=== PATIENT | female | born 1985 | race Caucasian/White ===

== ENCOUNTER 2024-11-07 09:38 | Emergency (ER) | payer MEDICAID ==
[~2024-11-07] VITALS: Ht 162.6 cm; Wt 71.7 kg
[~2024-11-07 09:38] MED LIST: CLIN-214 PO; ORPH100T4 PO; POLY119P2 PO; PROC-8 PO; SULF5DRO LEFTEYE; ZOF4T PO
--- NOTE | 2024-11-07 10:15 | Physician Documentation ---
History of Present Illness ~ Chief Complaint: Back Pain Stated Complaint: LOWER BACK PAIN Time Seen by MD: 09:55 Primary Medical Doctor: Apryl Chatman Source: patient Mode of Arrival: Ambulatory Exam Limitations: no limitations HPI Chief Complaint: Right low back and flank pain Caveat: None Independent Historians: None History of Present Illness: Patient is a 39-year-old woman who comes in complaining of right lower back and flank pain that began three days ago. Pain came on suddenly when she turned or said three days ago. However she denies any trauma. Pain is sharp and severe and constant. Pain has gotten progressively worse. Patient denies any nausea vomiting diarrhea. Patient states that she does have right lower flank pain and pain that radiates into the right lower quadrant when she urinates. Patient denies any dysuria urgency or frequency though. No fever. No other abdominal pain other than when she urinates. Review of systems: All systems were reviewed and are negative except for what is indicated in the history of present illness. Past Medical History: None Past Surgical History: x2 Social History: Tobacco use, no alcohol use, denies drug use Medications: Reviewed as documented Nursing Notes Allergies: Reviewed as documented in Nursing Notes Medication Reconciliation Allergies: Coded Allergies: acetaminophen (Unverified Allergy, Mild, 11/07/24) HIVES hydrocodone (Unverified Allergy, Mild, 11/07/24) HIVES Penicillins (Unverified Allergy, Unknown, CAN'T BREATH, THROAT SWELLING, 11/07/24) codeine (Verified Allergy, Unknown, ITCHING, 11/07/24) clindamycin (Unverified Adverse Reaction, Mild, intensified infection?, 11/07/24) morphine (Unverified Adverse Reaction, Mild, cant remember getting morphine, 11/07/24) Scheduled Clindamycin HCl (Clindamycin HCl CAPSULE), 1 CAP PO TID Polyethylene Glycol 3350 (Miralax), 17 GM PO DAILY Sulfacetamide Sodium (Bleph-10), 2 DROP LEFTEYE Q4H Scheduled PRN Ondansetron ODT* (Zofran ODT*), 1 TAB PO Q6H PRN for nausea/vomiting Orphenadrine Citrate (Norflex), 1 TABLET PO BID PRN for muscle spasms Prochlorperazine Maleate (Compazine), 1 TAB PO Q8H PRN for HEADACHE, NAUSEA Past Medical History Past Medical History: Headache, MRSA Abscess Past Surgical History: , tubal ligation, other Other Past Surgical History: Ovary removed Alcohol Use: None Drug Use: none Lives with: Family Lives In: Home Occupation: unemployed Review of Systems All Other Systems at this time: Reviewed and Negative ROS Patient denies any other acute symptoms other than above. All other systems are negative Physical Exam Physical Exam Vital Signs: RN Vital Signs have been reviewed: Yes, Temperature: 97.4, Source: Temporal, Heart Rate: 73, Respiratory Rate: 20, BP: 102/80, Pulse Oximetry: 97, Weight: 71.650 Pulse Oximetry Reflects: adequate oxygenation Physical Exam General Appearance: Moderate distress HEENT: Normal OP, moist oral mucosa, PERRL, EOMI Neck: supple, normal ROM, trachea midline Pulmonary: No respiratory distress, CTA, BS equal Cardiac: RRR, no murmur, rub or gallop, GI: nondistended, soft, right lower quadrant tenderness, right mid flank tenderness but no CVA tenderness, normal bowel sounds, no guarding, no rebound Extremities: normal ROM, no swelling, non-tender Skin: intact, dry, warm, no rashes Neuro: AAOx3, speech is clear, no focal motor weakness Psych: normal affect, good eye contact, no apparent hallucination, normal speech Progress Results/Orders Results/Orders Orders - MAKENZIE ALVAREZ MD Ct Abdomen Pelvis (11/07/24 10:04) Nothing By Mouth (11/07/24 Dinner) Completed Orders - MAKENZIE ALVAREZ MD Cbc/Diff (11/07/24 10:04) Lipase (11/07/24 10:04) Hcg, Ur Ql (11/07/24 10:04) Ct Abdomen Pelvis (11/07/24 10:04) BMP (11/07/24 10:04) Oxycodone/Acetaminophen Tablet (Percocet (11/07/24 10:05) Ketorolac Trometh 15mg/Ml Vial (Toradol (11/07/24 10:05) Ua W/Microscopic, Cult If Ind (11/07/24 10:10) Medications Received in ER Medications (Trade) Dose Ordered Sig/Erika Route PRN Reason Start Time Stop Time Status Last Admin Dose Admin (Percocet 10-325 mg tab) 1 tab ONCE ONCE PO 11/07/24 10:05 11/07/24 10:06 DC 11/07/24 10:32 1 TAB (Toradol injection) 15 mg ONCE ONCE IM 11/07/24 10:05 11/07/24 10:06 DC 11/07/24 10:33 15 MG Vital Signs 11/07/24 11/07/24 11/07/24 11/07/24 09:46 10:32 10:33 11:39 Temp 97.4 Pulse 73 Resp 20 16 16 16 B/P (MAP) 102/80 Pulse Ox 97 11/07/24 11:39 Resp 16 Laboratory Tests Test 11/07/24 10:10 11/07/24 10:22 Urine Specimen Description Cln catch midstream Urine Color Straw Urine Clarity Slightly cloudy Urine pH 6.0 Urine Specific [place] <=1.005 Urine Protein Negative Urine Glucose (UA) Negative Urine Ketones Negative Urine Occult Blood Moderate H Urine Nitrite Negative Urine Bilirubin Negative Urine Urobilinogen 0.2 Urine Leukocyte Esterase Negative Urine RBC 3-10 Urine WBC None seen Urine Squamous Epithelial Cells None seen Urine Bacteria Few Urine Mucus Few Urine Culture Indicated Not ind Volume Urine Centrifuged 10 ml Urine HCG, Qualitative Negative Urine Comment White Blood Count 4.6 Red Blood Count 4.49 Hemoglobin 14.0 Hematocrit 41.2 Mean Corpuscular Volume 91.7 Mean Corpuscular Hemoglobin 31.3 H Mean Corpuscular Hemoglobin Concent 34.1 Red Cell Distribution Width 13.6 Platelet Count 235 Mean Platelet Volume 8.1 Neutrophils (%) (Auto) 52.3 Lymphocytes (%) (Auto) 35.8 Monocytes (%) (Auto) 9.5 Eosinophils (%) (Auto) 1.6 Basophils (%) (Auto) 0.8 Neutrophils # (Auto) 2.4 Lymphocytes # (Auto) 1.7 Monocytes # (Auto) 0.4 Eosinophils # (Auto) 0.1 Basophils # (Auto) 0.0 CBC Comment Sodium Level 138 Potassium Level 4.3 Chloride Level 105 Carbon Dioxide Level 28.9 Anion Gap 4 L Blood Urea Nitrogen 12 Creatinine 0.82 Estimated GFR/1.73 m2 77 BUN/Creatinine Ratio 14.6 Glucose Level 91 Calcium Level 9.0 Albumin 3.9 Lipase 44 Chemistry Comments Medical Decision Making Findings Differential diagnosis includes but is not limited to: Ureteral colic, renal colic, pyelonephritis, acute appendicitis, cholecystitis, mesenteric adenitis, urinary tract infection Abdomen and pelvis CT scan without IV contrast, indication: Right lower quadrant pain and right flank pain Impression: 1. No acute abdominal or pelvic findings. No hydronephrosis or nephrolithiasis. Normal-appearing appendix identified. Hypodensity in the liver is nonspecific. This can be further evaluated with MRI of the abdomen with contrast. Left adrenal nodule. Laboratory data independent interpretation: CBC: Unremarkable BMP: Unremarkable Urinalysis: Unremarkable, RBC 3-10, WBC none test: Negative Emergency department course/medical decision-making: Patient presents low back pain/flank pain. Unable to differentiate if this is a possible ureteral colic versus musculoskeletal pain. Patient does have significant McBurney point tenderness on exam. CT scan of the abdomen and pelvis is performed in his negative for appendicitis or your ureteral stones. Patient was given Percocet and Toradol for pain. Patient feeling little better. She will be prescribed small dose of Percocet and Norflex for muscle relaxant. Test results and all the above reviewed with the patient. Patient is stable for discharge. Departure Time of Disposition: 11:54 Disposition: 01 HOME / SELF CARE / HOMELESS Impression: Primary Impression: Acute low back pain Qualified Codes: M54.50 - Low back pain, unspecified Condition: Improved Discharge Instructions: Lumbosacral Strain, Acute Back Pain, Adult Additional Instructions: FOLLOW UP WITH YOUR PRIMARY CARE DOCTOR. NO DRIVING WHEN TAKING THE PAIN MEDICATION AND MUSCLE RELAXANTS THEY MAY CAUSE DROWSINESS. YOU MAY CONTINUE TO TAKE ADVIL OR MOTRIN WITH THE PAIN MEDICATION. HOWEVER MAKE SURE YOU TAKE IT WITH FOOD. Prescriptions Orphenadrine Citrate (Norflex) 100 Mg Tablet.sa 1 TAB PO Q12H, #20 TAB 0 Refills Prov: MAKENZIE ALVAREZ MD 11/07/24 Oxycodone HCl/Acetaminophen (Percocet 5-325 mg Tablet) 5 Mg-325 Mg Tablet 1 TAB PO TID PRN PRN for pain for 5 Days, #15 TAB 0 Refills Prov: MAKENZIE ALVAREZ MD 11/07/24 Education Educated: Patient Educated regarding: diagnosis, treatment, need for follow up Signature Scribe Signature: No scribe Attestation: No scribe MAKENZIE ALVAREZ MD Nov 07, 2024 10:15
[2024-11-07 10:29] LABS: LEUKOCYTE ESTERASE ,URINE NEGATIVE (Neg); NITRITES, URINE NEGATIVE (Neg); OCCULT BLOOD,URINE MODERATE (Neg)
[2024-11-07] MEDS: ketorolac trometh 15mg/ml vial 15 MG/ML ML IM ONE (10:33)
[2024-11-07 10:34] LABS: MEAN PLATELET VOLUME 8.1 FL (7.4-10.4); RED CELL DISTRIBUTION WIDTH 13.6 % (11.5-14.5)
[2024-11-07 10:37] LABS: URINE HCG NEGATIVE (NEG)
[2024-11-07 10:43] LABS: CREATININE 0.82 MG/DL (0.40-0.90); TOTAL CARBON DIOXIDE 28.9 MMOL/L (24-32); eCRCL 78 ML/MIN; eGFR 77 ML/MIN
[2024-11-07 10:44] LABS: UA COLLECTION TYPE CLN CATCH MIDSTREAM
[2024-11-07 10:45] LABS: MUCUS STRANDS FEW /LPF (Neg); SQUAMOUS EPITHELIAL CELL,UR NONE SEEN /LPF (FEW)
--- NOTE | 2024-11-07 11:35 | RADIOLOGY REPORT ---
Exam: CT CT ABDOMEN PELVIS History: Abdominal Pain right lq and right flank Comparison Study: None Technique: Multidetector spiral CT of the abdomen and pelvis was performed from lung bases to pubic symphysis. Imaging was performed without IV contrast. Axial, coronal and sagittal multiplanar reform ats were obtained from the axial data set by the technologist. Radiation dose : Abdomen/Pelvis: CTDIvol 15 mGy, DLP 755 mGy*cm. Findings: Evaluation of solid organs is limited due to lack of intravenous contrast use. Lung Bases: No acute or significant lung base finding. Normal heart size. No pleural or pericardial effusion. Liver: Calcified granuloma in the left lobe of the liver. Hypodensity in the anterior right lobe of t he liver measuring up to 17 mm. Gallbladder and biliary Tree: Gallbladder is contracted. Spleen: Unremarkable Pancreas: The pancreas is grossly normal in appearance. Adrenal Glands: Left adrenal nodule measuring up to 14 mm. Kidneys: Kidneys are grossly normal without calculi or hydronephrosis. Bladder: Grossly unremarkable for degree of distention. Bowel: The stomach is grossly normal in appearance. Small bowel and colon are normal in caliber and d istribution. Normal appendix is visualized in the right lower quadrant without findings of appendicit is. Ascites: Absent Lymphadenopathy: No mesenteric, retroperitoneal or periportal lymphadenopathy. Abdominal wall and Mesentery: Unremarkable. Vasculature: The visualized abdominal aorta is normal in size and caliber. Evaluation of abdominal a nd pelvic vessels is limited due to lack of intravenous contrast. Pelvic Organs: Unremarkable Musculoskeletal: No aggressive focal bony lesions, acute fractures or dislocation. IMPRESSION: 1. No acute abdominal or pelvic findings. No hydronephrosis or nephrolithiasis. Normal-appearing wiliam endix identified. Hypodensity in the liver is nonspecific. This can be further evaluated with MRI of the abdomen with contrast. Left adrenal nodule. Radiation optimization: All CT scans at this facility use at least one of these dose optimization alla hniques: Automated exposure control mA and/or kV adjustment per patient size (includes targeted exams where dose is matched to clinical indication) or iterative reconstruction. HS:Y
[2024-11-07] MEDS ORDERED: ORPH100T4 PO (11:56)
[2024-11-07] MEDS ORDERED: OXYC-145 PO (11:56)
[2024-11-07 12:14] VITALS: BP 99/72; PULSE 52; RESP 15; TEMP 97.4; O2SAT 98
== END 2024-11-07 12:17 | disposition home or self-care (01) ==
LOC: ER 09:38
DX: M54.50 Low back pain, unspecified (principal); Z56.0 Unemployment, unspecified; Z88.0 Allergy status to penicillin; Z88.5 Allergy status to narcotic agent; Z98.51 Tubal ligation status; Z90.721 Acquired absence of ovaries, unilateral; Z79.899 Other long term (current) drug therapy
CPT/HCPCS: 36415; 74176; 80048; 81001; 81025; 83690; 85025; 96372; 99285; J1885